=== PATIENT | female | born 1990 | race Caucasian/White ===

== ENCOUNTER 2016-05-27 11:46 | Emergency (ER) | payer OTHER ==
--- NOTE | 2016-05-27 13:33 | ED ---
- HPI Summary HPI Summary: 25F presents with pin stick. She was in the OR doing an ortho procedure when went to take a pin out of a patient and it went through gloves into skin. The pin had made contact with patient prior to stick. She states her tetanus was within the past year. She states the patient, Serena Nieto, does not appear to be a high risk patient. She informed her charge nurse, Azalia in the OR. She cleaned the area with iodine prior to arrival. She states the area only bleed a drop. - History of Current Complaint Chief Complaint: EDGeneral Stated Complaint: PIN STICK Time Seen by Provider: 05/27/16 13:03 PMH/Surg Hx/FS Hx/Imm Hx Endocrine/Hematology History: Denies: Hx Anticoagulant Therapy Cardiovascular History: Denies: Hx Hypertension Infectious Disease History: No Infectious Disease History: Denies: Traveled Outside the [place] in Last 30 Days - Family History Known Family History: Negative: Cardiac Disease - Social History Alcohol Use: Occasionally Substance Use Type: Reports: None Smoking Status (MU): Unknown if Ever Smoked Review of Systems Negative: Fever Negative: Chest Pain Negative: Shortness Of Breath Positive: Other - stuck with ortho pin left palm All Other Systems Reviewed And Are Negative: Yes Physical Exam Triage Information Reviewed: Yes Vital Signs On Initial Exam: Initial Vitals Temp Pulse Resp BP Pulse Ox 98.1 F 72 18 128/72 100 05/27/16 11:50 05/27/16 11:50 05/27/16 11:50 05/27/16 11:50 05/27/16 11:50 Vital Signs Reviewed: Yes Appearance: Positive: Well-Appearing Skin: Positive: Warm, Dry, Other - 1/2 cm superifical abrasion of left palm hand Head/Face: Positive: Normal Head/Face Inspection Eyes: Positive: Normal, Conjunctiva Clear Respiratory/Lung Sounds: Positive: Clear to Auscultation, Breath Sounds Present Cardiovascular: Positive: Normal, RRR Diagnostics - Vital Signs Vital Signs Temp Pulse Resp BP Pulse Ox 05/27/16 11:50 98.1 F 72 18 128/72 100 - Laboratory Lab Statement: Any lab studies that have been ordered have been reviewed, and results considered in the medical decision making process. Needlestick Course/Dx - Course Course Of Treatment: 25F presents with getting stuck with pin in the OR. The pin touched the other patient before it hit here. It went through her left glove and created an abrasion of left palm. She immediately cleaned the area. She does not know HIV status of the patient. She informed Ms. Rondon and her charge nurse. They will be drawing labs on the patient. Her HIV status is negative. They patient she was stuck by, Serena Nieto, HIV status was negative. discussed pros vs cons of HIV medication and patient decided against it if HIV for patient was negative. left voicemail for patient telling of results. - Diagnoses Provider Diagnoses: Exposure to blood or body fluid Discharge - Discharge Plan Condition: Good Disposition: HOME Referrals: No Primary Care Phys,NOPCP [Primary Care Provider] - Additional Instructions: Follow up with Ms. Rondon if needed Return to ED if develop any new or worsening symptoms
[2016-05-27 14:45] LABS: Manual Entry Verification MD; Rapid HIV INT CONT QC Line Present; Rapid HIV Kit Lot# F2090005
[2016-05-27 15:43] VITALS: BP 124/72
== END 2016-05-27 15:42 | disposition home or self-care (01) ==
LOC: ED 11:46
DX: Z77.21 Contact with and (suspected) exposure to potentially hazardous body fluids (principal)
CPT/HCPCS: 36415; 86703; 86706; 86803; 99281

== ENCOUNTER 2016-06-10 10:33 | Emergency (ER) | payer OTHER ==
[2016-06-10 10:37] VITALS: BP 134/70
[2016-06-10 13:58] LABS: Rapid HIV INT CONT QC Line Present; Rapid HIV Kit Lot# F209011
--- NOTE | 2016-06-10 15:01 | ED ---
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 She was able to wash the area with Betadyne immediately and clean the wound. The suture needle had made contact with the patient prior to being stuck. Tetanus UTD within about 1 year. The patient she was caring for had no risk or precautions associated and does not think she was an HIV patient and would not like to begin any therapy at this time until results of Hep and HIV have been done. She informed the discharge specialist on her floor and was sent here with paperwork. The wound appears to be a small <.1mm puncture wound superficially and area did not bleed. Denies feeling ill or any other symptoms such has BROWN, fever, neck pain or other. 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 surgery Needlestick: Solid Needle Blood on Needle: Yes Depth of Needlestick: Puncture Depth: superficial Bleeding at Site: No Body Fluid Exposure: Blood Treatment HYDROGRAPHIC SURVEYOR: Cleaned Wound - Source Information HIV: Unknown Hepatitis: Unknown - Risk Factors Needlestick Risk Factor: Low Risk: Solid Needle - Other Discussed Post-Exposure prophylaxis (PEP) for HIV: Declined Discussed PEP for Hepatitis-B: Declined Serologic Testing (HIV/HBV) Declined by Patient: Yes PMH/Surg Hx/FS Hx/Imm Hx Previously Healthy: Yes Endocrine/Hematology History: Denies: Hx Anticoagulant Therapy Cardiovascular History: Denies: Hx Hypertension Infectious Disease History: No Infectious Disease History: Denies: Traveled Outside the [place] in Last 30 Days - Family History Known Family History: Negative: Cardiac Disease - Social History Occupation: Employed Full-time Lives: With Family Alcohol Use: None Hx Substance Use: No Substance Use Type: Reports: None Hx Tobacco Use: No Smoking Status (MU): Never Smoked Tobacco Review of Systems Constitutional: Negative Cardiovascular: Negative Respiratory: Negative Gastrointestinal: Negative Positive: no symptoms reported, see HPI Musculoskeletal: Negative Skin: Negative - small <.1mm superficial puncture wound to the radial side of left index finger between MCP and PIP joint Positive: Other Neurological: Negative Psychological: Normal All Other Systems Reviewed And Are Negative: Yes Physical Exam Triage Information Reviewed: Yes Vital Signs On Initial Exam: Initial Vitals Temp Pulse Resp BP Pulse Ox 97.3 F 80 16 134/70 100 06/10/16 10:35 06/10/16 10:35 06/10/16 10:35 06/10/16 10:35 06/10/16 10:35 Vital Signs Reviewed: Yes Appearance: Positive: Well-Appearing, No Pain Distress Skin: Positive: Warm, Other - puncture wound Head/Face: Positive: Normal Head/Face Inspection Eyes: Positive: EOMI, Conjunctiva Clear Neck: Positive: Supple, No Lymphadenopathy Respiratory/Lung Sounds: Positive: Clear to Auscultation, Breath Sounds Present Cardiovascular: Positive: RRR Musculoskeletal: Positive: Normal, Strength/ROM Intact Neurological: Positive: Sensory/Motor Intact, Alert, Oriented to Person Place, Time, CN Intact II-III, Speech Normal Psychiatric: Positive: Normal Diagnostics - Vital Signs Vital Signs Temp Pulse Resp BP Pulse Ox 06/10/16 11:31 97.3 F 80 16 134/70 100 06/10/16 10:35 97.3 F 80 16 134/70 100 - Laboratory Lab Results: Lab Results 06/10/16 Range/Units 13:05 Hepatitis B Antibody Pending Hep Bs Antigen Pending Hep Bs Antibody, Quant Pending Hepatitis C Antibody Pending HIV 1&2 Antibody Rapid Nonreactive (Nonreactive) Lab Statement: Any lab studies that have been ordered have been reviewed, and results considered in the medical decision making process. 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 She has informed her discharge specialist on the floor. They will likely draw labs on the patient, but this is unknown. Discussed prophylactic HIV medications and pros and cons and patient declined HIV until results are in. Will call patient to inform of results. small <.1mm superficial puncture wound to the radial side of left index finger between MCP and PIP joint without ecchymosos, drainage or surrounding erythema. patient states she is UTD with all vaccinations including tetanus - Diagnoses Provider Diagnoses: Employee exposure to body fluids Discharge - Discharge Plan Condition: Stable Disposition: HOME Patient Education Materials: Postexposure Prophylaxis (ED) Referrals: No Primary Care Phys,NOPCP [Primary Care Provider] - Additional Instructions: Will call with results Images - Images Hands: 1 - small puncture wound
[2016-06-10 15:25] LABS: Manual Entry Verification BM
== END 2016-06-10 13:09 | disposition home or self-care (01) ==
LOC: ED 10:33
DX: S61.231A Puncture wound without foreign body of left index finger without damage to nail, initial encounter (principal); Z77.21 Contact with and (suspected) exposure to potentially hazardous body fluids; W46.1XXA Contact with contaminated hypodermic needle, initial encounter; Y93.9 Activity, unspecified; Y92.239 Unspecified place in hospital as the place of occurrence of the external cause
CPT/HCPCS: 36415; 86703; 86706; 86803; 87340; 99282

== ENCOUNTER 2017-12-21 06:51 | Emergency (ER) | payer BC ==
[2017-12-21] MEDS ORDERED: Ibuprofen TAB* 600 MG PO ONE (07:27)
[2017-12-21] MEDS ORDERED: Acetaminophen TAB* 325 MG PO ONE (07:27)
[2017-12-21] MEDS ORDERED: Cyclobenzaprine TAB* 10 MG PO ONE (07:27)
[2017-12-21] MEDS ORDERED: Bupivacaine 0.5% W/EPI SDV* 30 ML VIAL INJ ONE (07:31)
--- NOTE | 2017-12-21 07:55 | ED ---
Back Pain - HPI Summary HPI Summary: This patient is a 27 year old F [facility]/o [facility] pain that began this morning. Pt was attempting to put her socks on when she felt a sharp pain in her lower back. The patient rates the pain 8/10 in severity and describes it as a stiffness. Symptoms aggravated by movement. Patient denies any urinary sx , injury, pain into LEs, numbness, weakness, incontinence, and tingling. She has not hx of back pain. NKDA. - History of Current Complaint Chief Complaint: EDBackInjuryPain Stated Complaint: LOWER BACK PAIN Time Seen by Provider: 12/21/17 07:17 Hx Obtained From: Patient Onset/Duration: Lasting Hours, Still Present Timing: Constant Back Pain Location: Is Discrete @ - low Severity Initially: Severe Severity Currently: Severe Pain Intensity: 8 Pain Scale Used: 0-10 Numeric Character: Stiffness Aggravating Symptom(s): Movement Associated Signs And Symptoms: Positive: Negative - urinary sx, injury, pain into LEs, numbness, weakness, incontinence, and - Allergies/Home Medications Allergies/Adverse Reactions: Allergies Allergy/AdvReac Type Severity Reaction Status Date / Time No Known Allergies Allergy Verified 12/21/17 06:56 PMH/Surg Hx/FS Hx/Imm Hx Endocrine/Hematology History: Denies: Hx Anticoagulant Therapy Cardiovascular History: Denies: Hx Hypertension Neurological History: Denies: Hx CVA, Hx Dementia, Hx Seizures Infectious Disease History: No Infectious Disease History: Denies: Traveled Outside the [place] in Last 30 Days - Family History Known Family History: Negative: Cardiac Disease - Social History Occupation: Employed Full-time Alcohol Use: None Hx Substance Use: No Substance Use Type: Reports: None Hx Tobacco Use: No Smoking Status (MU): Never Smoked Tobacco Review of Systems Gastrointestinal: Negative - incontinence Genitourinary: Negative - incontinence Positive: no symptoms reported Positive: Other - back pain Negative: Weakness, Paresthesia, Numbness All Other Systems Reviewed And Are Negative: Yes Physical Exam - Summary Physical Exam Summary: Appearance: Well appearing, no pain distress Skin: warm, dry, reflects adequate perfusion Head/face: normal Eyes: EOMI, ALFREDITO ENT: mucous membranes moist Neck: supple, non-tender Respiratory: CTA, breath sounds present Cardiovascular: RRR, pulses symmetrical Back: left sided lumbar muscular tenderness and spasm, light touch sensations and leg raise are normal Abdomen: non-tender, soft Bowel Sounds: present Musculoskeletal: normal, strength/ROM intact Neuro: normal, sensory motor intact, A&Ox3 Triage Information Reviewed: Yes Vital Signs On Initial Exam: Initial Vitals Temp Pulse Resp BP Pulse Ox 97.1 F 89 18 112/78 97 12/21/17 06:54 12/21/17 06:54 12/21/17 06:54 12/21/17 06:54 12/21/17 06:54 Vital Signs Reviewed: Yes Procedures - Procedure Summary Procedure Summary: Trigger point injection: Reason: Back pain Description: The patient was verbally consented. She was laid supine and the bilateral low lumbar musculature was cleaned with alcohol. Triggerpoints are injected with a total of 10 cc of 0.5% bupivacaine with epinephrine. This was massage the tissues. Pain relief was modest with this and so the procedure was repeated with another 8 cc of the same medication. This seemed to help much more and the patient was able to ambulate fully. She was still having some discomfort but is neurologically intact. She is able to put on her shoes easily despite residual discomfort. She tolerated this well without, location. Diagnostics - Vital Signs Vital Signs Temp Pulse Resp BP Pulse Ox 12/21/17 06:54 97.1 F 89 18 112/78 97 - Laboratory Lab Statement: Any lab studies that have been ordered have been reviewed, and results considered in the medical decision making process. Re-Evaluation - Re-Evaluation First Eval Re-Evaluation Time: 08:39 Change: Improved Comment: There was minimal improvement with the first injection. Back Pain Course/Dx - Course Course Of Treatment: Patient with muscular skull back pain improving after trigger point injection, oral medications. No neurologic symptoms. Recommended to chiropractor. Outpatient oral medications prescribed. Follow up primary care physician. Off work. - Diagnoses Differential Diagnosis/HQI/PQRI: Positive: Cauda Equina Syndrome, Strain, Sprain Provider Diagnoses: Lumbar strain Discharge - Sign-Out/Discharge Documenting (check all that apply): Patient Departure - Discharge Plan Condition: Improved Disposition: HOME Prescriptions: Cyclobenzaprine HCl 5 mg PO TID PRN #10 tablet PRN Reason: muscle pain Naproxen [Naproxen 500 mg tab] 500 mg PO BID PRN #12 tablet PRN Reason: Pain Patient Education Materials: Back Pain (ED) Forms: *Work Release Referrals: [facility] [Outside] [facility]IAN REFERRAL [Outside] Additional Instructions: Range of motion, stretching exercises. Massage may help. Call today to follow up with chiropractor. The [facility] can provide you prompt follow -up with the medical doctors well. Return if worse, numbness/weakness, difficulty with bowel or bladder, worse or other concerns. - Billing Disposition and Condition Condition: IMPROVED Disposition: Home - Attestation Statements Document Initiated by Catieibe: Yes Documenting Scribe: Sae Dias Provider For Whom Catieibe is Documenting (Include Credential): Osmel Nieves MD Scribe Attestation: ISae, scribed for Osmel Nieves MD on 12/21/17 at 1410. Scribe Documentation Reviewed: Yes Provider Attestation: The documentation as recorded by the Sae moreau accurately reflects the service I personally performed and the decisions made by me, Osmel Nieves MD
[2017-12-21 10:11] VITALS: BP 121/74
== END 2017-12-21 10:10 | disposition home or self-care (01) ==
LOC: ED 06:51
DX: S39.012A Strain of muscle, fascia and tendon of lower back, initial encounter (principal); X58.XXXA Exposure to other specified factors, initial encounter; Y92.9 Unspecified place or not applicable
CPT/HCPCS: 99282; A9270-GY

== ENCOUNTER 2018-07-27 09:02 | Emergency (ER) | payer BC ==
[2018-07-27 09:41] LABS: ABS Basophils 0.1 10^3/ul (0-0.2); ABS Eosinophils 0.3 10^3/ul (0-0.6); ABS Lymphocytes 3.1 10^3/ul (1.0-4.8); ABS Monocytes 0.5 10^3/ul (0-0.8); ABS Neutrophils 5.3 10^3/ul (1.5-7.7); Eosinophil % 3.1 %; Hematocrit 38 % (35-47); Hemoglobin 12.7 g/dL (12.0-16.0); Lymphocyte % 33.2 %; Mean Corpuscular HGB Conc 33 g/dL (31-36); Mean Corpuscular Hemoglobin 29 pg (27-31); Mean Corpuscular Volume 88 fL (80-97); Mean Platelet Volume 8.6 fL (7.4-10.4); Nucleated Red Blood Cells % 0.1; Platelet Count 295 10^3/uL (150-450); Red Blood Count 4.34 10^6 /uL (3.70-4.87); Red Cell Distribution Width 14 % (10.5-15); White Blood Count 9.2 10^3/uL (3.5-10.8)
[2018-07-27 10:08] LABS: ALT 10 U/L (7-52); AST 12 U/L (13-39); Albumin/Globulin Ratio 1.4 (1-3); Alkaline Phosphatase 65 U/L (34-104); Anion Gap 7 mmol/L (2-11); BUN/Creatinine Ratio 16.7 (8-20); Blood Urea Nitrogen 13 mg/dL (6-24); CO2 Carbon Dioxide 25 mmol/L (22-32); Chloride 106 mmol/L (101-111); EGFR African American 106.4 (>60); EGFR Non-African American 87.9 (>60); Globulin 2.9 g/dL (2-4); Glucose 83 mg/dL (70-100); Magnesium 2.1 mg/dL (1.9-2.7); Potassium 4.3 mmol/L (3.5-5.0); Sodium 138 mmol/L (135-145); Total Protein 6.9 g/dL (6.4-8.9)
[2018-07-27 10:09] LABS: Creatine Kinase 70 U/L (10-223)
[2018-07-27 10:11] LABS: CKMB ng/mL 0.7 ng/mL (0.6-6.3)
[2018-07-27 10:14] LABS: HCG Pregnancy < 0.60 mIU/mL
[2018-07-27 10:35] LABS: Urine Appearance Cloudy; Urine Bacteria 1+ (Absent); Urine Bilirubin Negative (Negative); Urine Blood Negative (Negative); Urine Color Straw; Urine Glucose Negative (Negative); Urine Ketones Negative (Negative); Urine Nitrite Negative (Negative); Urine Protein Negative (Negative); Urine Red Blood Cell Trace(0-2/hpf) (Absent); Urine Specific Gravity 1.004 (1.010-1.030); Urine Squamous Epithelial Cell Present (Absent); Urine Urobilinogen Negative (Negative); Urine White Blood Cell 1+(6-10/hpf) (Absent)
--- NOTE | 2018-07-27 10:50 | ED ---
HPI Chest Pain - HPI Summary HPI Summary: This patient is a 27 year old F presenting to [facility] with a chief complaint of central chest pain since yesterday, 07/26/18. The pain occurs on inhalation and sneezing and was still present this morning after the onset. The patient also reports a hot flash episode this morning while folding laundry. The pain is described as pressure and burning, and is rated a 3/10. Patient denies nausea, vomiting, productive cough, SOB, and recent travel. The patient also reports no Hx of heart disease, GERD, recent stress tests, and visiting a industrial engineering director. The patient has a FHx of DM, HTN, and HLD. Symptoms aggravated by nothing. Symptoms alleviated by nothing. Patient is on control. - History of Current Complaint Chief Complaint: EDChestPainROMI Time Seen by Provider: 07/27/18 09:11 Hx Obtained From: Patient Onset/Duration: Started Days Ago - 1 Timing: Constant Initial Severity: Mild Current Severity: Mild Pain Intensity: 3 Pain Scale Used: 0-10 Numeric Chest Pain Location: Mid Sternal Chest Pain Radiates: No Character: Burning, Pressure/Squeezing Aggravating Factor(s): Nothing Alleviating Factor(s): Nothing Associated Signs and Symptoms: Positive: Chest Pain, Other: - hot flash episode. Negative: Shortness of Breath, Nausea, Productive Cough, Vomiting - Allergy/Home Medications Allergies/Adverse Reactions: Allergies Allergy/AdvReac Type Severity Reaction Status Date / Time No Known Allergies Allergy Verified 12/21/17 06:56 Home Medications: Home Medications Levonorgestrel-Ethin Estradiol [Orsythia-28 Tablet] 1 tab PO DAILY 07/27/18 [ History Confirmed 07/27/18] PMH/Surg Hx/FS Hx/Imm Hx Previously Healthy: No Endocrine/Hematology History: Denies: Hx Anticoagulant Therapy Cardiovascular History: Denies: Hx Hypertension Neurological History: Denies: Hx CVA, Hx Dementia, Hx Seizures Infectious Disease History: No Infectious Disease History: Denies: Traveled Outside the [place] in Last 30 Days - Family History Known Family History: Positive: Hypertension, Diabetes, Other - Hyperlipidemia Negative: Cardiac Disease - Social History Alcohol Use: Occasionally Hx Substance Use: No Substance Use Type: Reports: None Hx Tobacco Use: No Smoking Status (MU): Former Smoker Review of Systems Constitutional: Other - episode of hot flashes endorsed Positive: Chest Pain - Mid-sternal Negative: Shortness Of Breath, Cough - negative: nonproductive cough Negative: Vomiting, Nausea All Other Systems Reviewed And Are Negative: Yes Physical Exam - Summary Physical Exam Summary: VITAL SIGNS: Reviewed. GENERAL: Patient is a well-developed and nourished Female who is lying comfortable in the stretcher. Patient is not in any acute respiratory distress. HEAD AND FACE: No signs of trauma. No ecchymosis, hematomas or skull depressions. No sinus tenderness. EYES: PERRLA, EOMI x 2, No injected conjunctiva, no nystagmus. EARS: Hearing grossly intact. Ear canals and tympanic membranes are within normal limits. MOUTH: Oropharynx within normal limits. NECK: Supple, trachea is midline, no adenopathy, no JVD, no carotid bruit, no c- spine tenderness, neck with full ROM. CHEST: Symmetric, reproducible tenderness LUNGS: Clear to auscultation bilaterally. No wheezing or crackles. CVS: Regular rate and rhythm, S1 and S2 present, no murmurs or gallops appreciated. ABDOMEN: Soft, non-tender. No signs of distention. No rebound no guarding, and no masses palpated. Bowel sounds are normal. EXTREMITIES: FROM in all major joints, no edema, no cyanosis or clubbing. NEURO: Alert and oriented x 3. No acute neurological deficits. Speech is normal and follows commands. SKIN: Dry and warm Triage Information Reviewed: Yes Vital Signs On Initial Exam: Initial Vitals Temp Pulse Resp BP Pulse Ox 97.3 F 81 18 128/95 100 07/27/18 09:10 07/27/18 09:10 07/27/18 09:10 07/27/18 09:10 07/27/18 09:10 Vital Signs Reviewed: Yes Diagnostics - Vital Signs Vital Signs Temp Pulse Resp BP Pulse Ox 07/27/18 10:00 57 20 98 07/27/18 09:53 63 20 107/62 98 07/27/18 09:23 63 130/94 99 07/27/18 09:22 72 98 07/27/18 09:10 97.3 F 81 18 128/95 100 - Laboratory Lab Results: Lab Results 07/27/18 07/27/18 07/27/18 Range/Units 09:29 09:29 09:29 WBC 9.2 (3.5-10.8) 10^3/uL RBC 4.34 (3.70-4.87) 10^6 /uL Hgb 12.7 (12.0-16.0) g/dL Hct 38 (35-47) % MCV 88 (80-97) fL MCH 29 (27-31) pg MCHC 33 (31-36) g/dL RDW 14 (10.5-15) % Plt Count 295 (150-450) 10^3/uL MPV 8.6 (7.4-10.4) fL Neut % (Auto) 56.9 % Lymph % (Auto) 33.2 % Garden % (Auto) 5.8 % Eos % (Auto) 3.1 % Baso % (Auto) 1.0 % Absolute Neuts (auto) 5.3 (1.5-7.7) 10^3/ul Absolute Lymphs (auto) 3.1 (1.0-4.8) 10^3/ul Absolute Monos (auto) 0.5 (0-0.8) 10^3/ul Absolute Eos (auto) 0.3 (0-0.6) 10^3/ul Absolute Basos (auto) 0.1 (0-0.2) 10^3/ul Absolute Nucleated RBC 0.0 10^3/ul Nucleated RBC % 0.1 D-Dimer, Quantitative (Less Than 230) ng/mL Sodium 138 (135-145) mmol/L Potassium 4.3 (3.5-5.0) mmol/L Chloride 106 (101-111) mmol/L Carbon Dioxide 25 (22-32) mmol/L Anion Gap 7 (2-11) mmol/L BUN 13 (6-24) mg/dL Creatinine 0.78 (0.51-0.95) mg/dL Est GFR ( Amer) 106.4 (>60) Est GFR (Non-Af Amer) 87.9 (>60) BUN/Creatinine Ratio 16.7 (8-20) Glucose 83 (70-100) mg/dL Lactic Acid 0.9 (0.5-2.0) mmol/L Calcium 9.0 (8.6-10.3) mg/dL Magnesium 2.1 (1.9-2.7) mg/dL Total Bilirubin 0.40 (0.2-1.0) mg/dL AST 12 L (13-39) U/L ALT 10 (7-52) U/L Alkaline Phosphatase 65 (34-104) U/L Total Creatine Kinase 70 (10-223) U/L CK-MB (CK-2) 0.7 (0.6-6.3) ng/mL Troponin I 0.00 (<0.04) ng/mL B-Natriuretic Peptide (<=100) pg/mL Total Protein 6.9 (6.4-8.9) g/dL Albumin 4.0 (3.2-5.2) g/dL Globulin 2.9 (2-4) g/dL Albumin/Globulin Ratio 1.4 (1-3) TSH Pending Beta HCG, Quant < 0.60 mIU/mL Urine Color Urine Appearance Urine pH (5-9) Ur Specific Marion (1.010-1.030) Urine Protein (Negative) Urine Ketones (Negative) Urine Blood (Negative) Urine Nitrate (Negative) Urine Bilirubin (Negative) Urine Urobilinogen (Negative) Ur Leukocyte Esterase (Negative) Urine WBC (Auto) (Absent) Urine RBC (Auto) (Absent) Ur Squamous Epith Cells (Absent) Urine Bacteria (Absent) Urine Glucose (Negative) 07/27/18 07/27/18 07/27/18 Range/Units 09:29 09:31 09:31 WBC (3.5-10.8) 10^3/uL RBC (3.70-4.87) 10^6 /uL Hgb (12.0-16.0) g/dL Hct (35-47) % MCV (80-97) fL MCH (27-31) pg MCHC (31-36) g/dL RDW (10.5-15) % Plt Count (150-450) 10^3/uL MPV (7.4-10.4) fL Neut % (Auto) % Lymph % (Auto) % Garden % (Auto) % Eos % (Auto) % Baso % (Auto) % Absolute Neuts (auto) (1.5-7.7) 10^3/ul Absolute Lymphs (auto) (1.0-4.8) 10^3/ul Absolute Monos (auto) (0-0.8) 10^3/ul Absolute Eos (auto) (0-0.6) 10^3/ul Absolute Basos (auto) (0-0.2) 10^3/ul Absolute Nucleated RBC 10^3/ul Nucleated RBC % D-Dimer, Quantitative 252 H (Less Than 230) ng/mL Sodium (135-145) mmol/L Potassium (3.5-5.0) mmol/L Chloride (101-111) mmol/L Carbon Dioxide (22-32) mmol/L Anion Gap (2-11) mmol/L BUN (6-24) mg/dL Creatinine (0.51-0.95) mg/dL Est GFR ( Amer) (>60) Est GFR (Non-Af Amer) (>60) BUN/Creatinine Ratio (8-20) Glucose (70-100) mg/dL Lactic Acid (0.5-2.0) mmol/L Calcium (8.6-10.3) mg/dL Magnesium (1.9-2.7) mg/dL Total Bilirubin (0.2-1.0) mg/dL AST (13-39) U/L ALT (7-52) U/L Alkaline Phosphatase (34-104) U/L Total Creatine Kinase (10-223) U/L CK-MB (CK-2) (0.6-6.3) ng/mL Troponin I (<0.04) ng/mL B-Natriuretic Peptide 29 (<=100) pg/mL Total Protein (6.4-8.9) g/dL Albumin (3.2-5.2) g/dL Globulin (2-4) g/dL Albumin/Globulin Ratio (1-3) TSH Beta HCG, Quant mIU/mL Urine Color Straw Urine Appearance Cloudy Urine pH 6.0 (5-9) Ur Specific Marion 1.004 L (1.010-1.030) Urine Protein Negative (Negative) Urine Ketones Negative (Negative) Urine Blood Negative (Negative) Urine Nitrate Negative (Negative) Urine Bilirubin Negative (Negative) Urine Urobilinogen Negative (Negative) Ur Leukocyte Esterase 1+ A (Negative) Urine WBC (Auto) 1+(6-10/hpf) A (Absent) Urine RBC (Auto) Trace(0-2/hpf) (Absent) Ur Squamous Epith Cells Present A (Absent) Urine Bacteria 1+ A (Absent) Urine Glucose Negative (Negative) Result Diagrams: 07/27/18 09:29 07/27/18 09:29 Lab Statement: Any lab studies that have been ordered have been reviewed, and results considered in the medical decision making process. - Radiology CXR Radiology Interpretation Completed By: Radiologist Summary of Radiographic Findings: No evidence for acute intrathoracic disease. ED physician has reviewed this report. - EKG 0911 Cardiac Rate: NL - 62 EKG Rhythm: Sinus Rhythm ST Segment: Normal Summary of EKG Findings: Normal sinus rhythm and rate of 62 BPM with normal axis and no ST elevation. Chest Pain Course/Dx - Course Assessment/Plan: This patient is a 19-year-old female who presents to the emergency department with chief complaint of having left-sided chest pain. She reports the pain increases with deep inspiration. She has no past medical history significant for hypertension, diabetes or dyslipidemia. She has no family history of having any heart disease or coronary artery disease in her family at her age. EKG shows a normal sinus rhythm without any ST elevation. Blood test results without any significant abnormality, urinalysis is contaminated but negative for UTI and therefore well send the urine for culture. D-dimer is 252 which is a low d-dimer. The patient is not hypoxic or tachycardic therefore I have low suspicion for a PE. The criteria for PE is equal to 0. Chest x-ray impression: No evidence for acute intrathoracic disease. In the ED course the patient was given Toradol for the pain and her symptoms have significantly improved. Therefore the patient will be discharged home with follow-up with primary care physician. I suspect the patient does not have any acute coronary syndrome. Patient reports that all symptoms have resolved. Because the patient has no significant comorbidities and no family history of cardiovascular disease at her age the patient will be discharged home with follow up of PMD. I discussed all the findings and test results with the patient. Patient was instructed to return to the emergency room immediately if any of the symptoms return or worsens. Patient understands and agrees. Plan of care was discussed with the patient and patient understands and agrees. All questions were answered at patient satisfaction. There were no further complaints or concerns. PE before discharge: CVS: S1 and S2 present. No murmurs appreciated. Abdominal exam before discharge: Soft, non-tender. No signs of distention. No rebound no guarding, and no masses palpated. Bowel sounds are normal. Patient is alert and oriented x 3. Patient is hemodynamically stable. - Chest Pain Differential Diagnosis/HQI/PQRI: Acute [place], ACS, Angina, CHF, Chest Wall, GI Disease, Lower Respiratory Infection, Pulmonary Edema - Diagnoses Provider Diagnoses: Chest pain Discharge - Sign-Out/Discharge Documenting (check all that apply): Patient Departure - discharge Patient Received Moderate/Deep Sedation with Procedure: No - Discharge Plan Condition: Stable Disposition: HOME Patient Education Materials: Chest Pain (ED) Referrals: Care [facility] [Outside] - 3 Days Additional Instructions: FOLLOW UP WITH YOUR PRIMARY CARE PROVIDER WITHIN 3 DAYS. RETURN TO THE ED FOR ANY WORSENING OR NEW SYMPTOMS. - Billing Disposition and Condition Condition: STABLE Disposition: Home - Attestation Statements Document Initiated by Lizzeth: Yes Documenting Scribe: Tyler Tiwari Provider For Whom Lizzeth is Documenting (Include Credential): Alex Schulz MD Scribe Attestation: Tyler Burrell, scribed for Alex Schulz MD on 07/29/18 at 1138. Scribe Documentation Reviewed: Yes Provider Attestation: The documentation as recorded by the lizzeth, Tyler Tiwari accurately reflects the service I personally performed and the decisions made by Alex gannon MD Status of Scribe Document: Viewed
[2018-07-27] MEDS ORDERED: Ketorolac INJ* 30 MG/ML 1 ML VIAL IV PUSH ONE (11:08)
[2018-07-27 11:51] VITALS: BP 120/80
== END 2018-07-27 11:50 | disposition home or self-care (01) ==
LOC: ED 09:02
DX: R07.89 Other chest pain (principal); Z79.3 Long term (current) use of hormonal contraceptives; Z82.49 Family history of ischemic heart disease and other diseases of the circulatory system; Z83.3 Family history of diabetes mellitus; Z83.438 Family history of other disorder of lipoprotein metabolism and other lipidemia; Z87.891 Personal history of nicotine dependence
CPT/HCPCS: 36415; 71045; 80053; 81003; 81015; 82550; 82553; 83605; 83735; 83880; 84443; 84484; 84702; 85025; 85379; 87086; 93005; 99283; J1885

== ENCOUNTER 2018-11-11 15:16 | Emergency (ER) | payer BC, OTHER ==
--- NOTE | 2018-11-11 15:40 | ED ---
- HPI Summary HPI Summary: Pt. is a 28 y.o female who presents to the ER for needle stick to 3rd digit on right hand. 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 Pt. states she accidentally dropped a used scalpel cutting her 3rd digit of right hand. Pt. states she cleaned wound out with alcohol and washed hands. Pt. states source pt. has no concerning risk factors or past medical hx. Pt. notes immunizations are up to date. Sxs are moderate in severity. No current modifying factors. - History of Current Complaint Chief Complaint: EDExposureBodyFluid Stated Complaint: EXPOSURE LAC RT MIDDLE FINGER PER PT Time Seen by Provider: 11/11/18 15:26 PMH/Surg Hx/FS Hx/Imm Hx Previously Healthy: Yes Endocrine/Hematology History: Denies: Hx Anticoagulant Therapy Cardiovascular History: Denies: Hx Hypertension Neurological History: Denies: Hx CVA, Hx Dementia, Hx Seizures Infectious Disease History: No Infectious Disease History: Denies: Traveled Outside the [place] in Last 30 Days - Family History Known Family History: Positive: Hypertension, Diabetes, Other - Hyperlipidemia Negative: Cardiac Disease - Social History Occupation: Employed Full-time Lives: With Family Alcohol Use: Occasionally Hx Substance Use: No Substance Use Type: Reports: None Hx Tobacco Use: No Smoking Status (MU): Former Smoker Review of Systems Positive: Other - small laceration to 3rd digit of right hand. All Other Systems Reviewed And Are Negative: Yes Physical Exam Triage Information Reviewed: Yes Vital Signs On Initial Exam: Initial Vitals Temp Pulse Resp BP Pulse Ox 98.4 F 94 18 143/84 96 11/11/18 15:18 11/11/18 15:18 11/11/18 15:18 11/11/18 15:18 11/11/18 15:18 Vital Signs Reviewed: Yes Appearance: Positive: Well-Appearing - Pt. sitting in hallway chair in NAD. Skin: Positive: Warm, Dry Head/Face: Positive: Normal Head/Face Inspection Eyes: Positive: Normal, EOMI Neck: Positive: Supple Musculoskeletal: Positive: Normal, Strength/ROM Intact, Other - 1cm superficial abrasion to distal aspect of right 3rd digit of hand. Neurological: Positive: Sensory/Motor Intact, CN Intact II-III Psychiatric: Positive: Affect/Mood Appropriate Diagnostics - Vital Signs Vital Signs Temp Pulse Resp BP Pulse Ox 11/11/18 15:18 98.4 F 94 18 143/84 96 - Laboratory Lab Statement: Any lab studies that have been ordered have been reviewed, and results considered in the medical decision making process. Needlestick Course/Dx - Course Course Of Treatment: Pt. with abrasion from used scalpel. Wound cleaned prior to arrival. Discussed PEP and pt. declines at this time. Pending source pt. labs. Protocol labs ordered. Pt. will be dc to . with [facility]. Pt. understands and agrees with plan. - Diagnoses Provider Diagnoses: Employee exposure to body fluids Discharge ED - Sign-Out/Discharge Documenting (check all that apply): Patient Departure Patient Received Moderate/Deep Sedation with Procedure: No - Discharge Plan Condition: Good Disposition: HOME Patient Education Materials: Needle Stick Injuries (ED) Referrals: Juan J Rawls MD [Medical Doctor] - Additional Instructions: Follow up with employee health Return to ER if symptoms change or worsen - Billing Disposition and Condition Condition: GOOD Disposition: Home
[2018-11-11 16:10] VITALS: BP 0/0
[2018-11-11 17:03] LABS: Rapid HIV 1 Nonreactive (Nonreactive)
[2018-11-11 17:11] LABS: Hepatitis B Surface Antigen Negative (Negative)
[2018-11-11 17:28] LABS: Hepatitis B Surface Ab Not Immune (Immune); Hepatitis C Antibody Negative (Negative)
== END 2018-11-11 16:09 | disposition home or self-care (01) ==
LOC: ED 15:16
DX: S60.412A Abrasion of right middle finger, initial encounter (principal); Z77.21 Contact with and (suspected) exposure to potentially hazardous body fluids; W26.8XXA Contact with other sharp object(s), not elsewhere classified, initial encounter; Y92.234 Operating room of hospital as the place of occurrence of the external cause; Y99.0 Civilian activity done for income or pay; Z87.891 Personal history of nicotine dependence
CPT/HCPCS: 36415; 86703; 86706; 86803; 87340; 99282